=== PATIENT | female | born 1965 | race American Indian/Alaskan Native ===

== ENCOUNTER 2018-01-08 18:09 | Emergency (ER) | payer OTHER ==
[2018-01-08 18:21] VITALS: BP 146/89; PULSE 63; RESP 18; TEMP 98.6; O2SAT 100
--- NOTE | 2018-01-08 19:32 | ED PDOC ---
HPI: General Adult Time Seen by Provider: 01/08/18 18:22 Chief Complaint (Nursing): Upper Extremity Problem/Injury Chief Complaint (Provider): Upper Neck Pain History Per: Patient History/Exam Limitations: no limitations Onset/Duration Of Symptoms: Days (x7) Have you had recent travel within the past 21 days to any of the following countries: [place], [place], [place] or [place]?: No Current Symptoms Are (Timing): Still Present Additional Complaint(s): 52 y/o black female with a history of diabetes, high blood pressure, and high cholesterol presents to the ED with right sided neck pain. Patient states pain has been present for one week and has not had this symptom in the past. She was taking Motrin for the pain which gave some relief until it wore off. Patient denies any trauma or injury. PMD: Dr. Jad Ruiz Past Medical History Reviewed: Historical Data, Nursing Documentation, Vital Signs Vital Signs: Last Vital Signs Temp 98.6 F 01/08/18 18:19 Pulse 63 01/08/18 18:19 Resp 18 01/08/18 18:19 BP 146/89 01/08/18 18:19 Pulse Ox 100 01/08/18 19:35 - Medical History PMH: Diabetes, HTN, Hypercholesterolemia, Hyperlipidemia - Surgical History Surgical History: No Surg Hx - Family History Family History: States: No Known Family Hx - Social History Current smoker - smoking cessation education provided: No Ex-Smoker (has not smoked in the last 12 months): No Alcohol: None Drugs: Denies - Home Medications Home Medications: Ambulatory Orders Medication Instructions Recorded Cyclobenzaprine [Cyclobenzaprine 10 mg PO Q8H PRN #12 tab 01/08/18 HCl] Naproxen [Naprosyn] 500 mg PO BID PRN #20 tablet 01/08/18 - Allergies Allergies/Adverse Reactions: Allergies Allergy/AdvReac Type Severity Reaction Status Date / Time No Known Allergies Allergy Verified 01/08/18 18:22 Review of Systems ROS Statement: Except As Marked, All Systems Reviewed And Found Negative Musculoskeletal: Positive for: Neck Pain (right side) Physical Exam - Reviewed Nursing Documentation Reviewed: Yes Vital Signs Reviewed: Yes - Physical Exam Appears: Positive for: Well, Non-toxic, No Acute Distress Head Exam: Positive for: ATRAUMATIC, NORMAL INSPECTION, NORMOCEPHALIC Skin: Positive for: Normal Color, Warm, Dry Eye Exam: Positive for: EOMI, Normal appearance, PERRL ENT: Positive for: Normal ENT Inspection Neck: Positive for: Pain On Movement Of Neck (tender right trapezius with muscle spasm with movement to the right) Cardiovascular/Chest: Positive for: Regular Rate, Rhythm. Negative for: Murmur Respiratory: Positive for: Normal Breath Sounds. Negative for: Respiratory Distress Gastrointestinal/Abdominal: Positive for: Normal Exam, Soft Back: Positive for: Normal Inspection, Vertebral Tenderness. Negative for: L CVA Tenderness, R CVA Tenderness Extremity: Positive for: Normal ROM. Negative for: Pedal Edema, Deformity Neurologic/Psych: Positive for: Alert, Oriented (x3). Negative for: Motor/ Sensory Deficits - ECG O2 Sat by Pulse Oximetry: 100 (RA) Pulse Ox Interpretation: Normal Medical Decision Making Medical Decision Making: Time: 18:19 Impression: Muscular skeletal pain, rule out cervical spine abnormalities. Plan: * Flexeril 10 mg PO * Spinal X-Ray Scribe Attestation: Documented by Annette Britt acting as a scribe Maria C Jon PA-C. MD Scribe Attestation: All medical record entries made by the Scribe were at my direction and personally dictated by me. I have reviewed the chart and agree that the record accurately reflects my personal performance of the history, physical exam, medical decision making, and the department course for this patient. I have also personally directed, reviewed, and agree with the discharge instructions and disposition. Disposition - Clinical Impression Clinical Impression: Neck pain on right side - Patient ED Disposition Is Patient to be Admitted: No Counseled Patient/Family Regarding: Diagnosis, Need For Followup, Rx Given - Disposition Disposition: Routine/Home Disposition Time: 19:26 Condition: GOOD Prescriptions: Cyclobenzaprine [Cyclobenzaprine HCl] 10 mg PO Q8H PRN #12 tab PRN Reason: Muscle Spasm Naproxen [Naprosyn] 500 mg PO BID PRN #20 tablet PRN Reason: Pain Instructions: Neck Pain Forms: [facility] (Tristanian)
--- NOTE | 2018-01-09 09:08 | RAD ---
PROCEDURE: Cervical Spine Radiographs. HISTORY: Pain. COMPARISON: None. FINDINGS: BONES: Alignment maintained. No fracture. Dens Intact. DISC SPACES: Normal. SOFT TISSUES: Normal. No prevertebral soft tissue swelling. OTHER FINDINGS: None. IMPRESSION: Normal cervical spine radiographs
== END 2018-01-08 19:39 | disposition home or self-care (01) ==
LOC: H.ER 18:09
DX: M54.2 Cervicalgia (principal); E11.9 Type 2 diabetes mellitus without complications; I10 Essential (primary) hypertension; Z87.891 Personal history of nicotine dependence; E78.00 Pure hypercholesterolemia, unspecified

== ENCOUNTER 2018-06-19 13:33 | Emergency (ER) | payer OTHER ==
[2018-06-19 13:55] VITALS: BP 129/69; PULSE 71; RESP 20; TEMP 97; O2SAT 98
[2018-06-19] MEDS ORDERED: Lidocaine 1% (10 ml) Inj INFIL STA (14:26)
[2018-06-19] MEDS ORDERED: Tdap Vaccine 0.5 ml Vial (10-64 yrs) IM ONE ×2 (14:26→14:31)
[2018-06-19] MEDS ORDERED: Lidocaine PF 2% (5 ml) Inj (For Cardiac Arrhy) ONE (14:31)
--- NOTE | 2018-06-19 14:39 | ED PDOC ---
Upper Extremity Pain/Injury Time Seen by Provider: 06/19/18 13:46 Chief Complaint (Nursing): Finger,Hand,&Wrist Chief Complaint (Provider): Right 4th digit laceration History Per: Patient History/Exam Limitations: no limitations Onset/Duration Of Symptoms: Mins Current Symptoms Are (Timing): Still Present Additional Complaint(s): 52yo female, comes to ER for evaluation of a laceration to her right 4th digit. Patient states she was opening a can when her finger got caught on the edge of the can. Otherwise, she denies any numbness or tingling to the finger. Patient states her tetanus vaccine is not up to date. Past Medical History Reviewed: Historical Data, Nursing Documentation, Vital Signs Vital Signs: Last Vital Signs Temp 97 F L 06/19/18 13:54 Pulse 71 06/19/18 13:54 Resp 20 06/19/18 13:54 BP 129/69 06/19/18 13:54 Pulse Ox 98 06/19/18 13:54 - Medical History PMH: Diabetes, HTN, Hypercholesterolemia, Hyperlipidemia - Surgical History Surgical History: No Surg Hx - Family History Family History: States: No Known Family Hx - Home Medications Home Medications: Ambulatory Orders Medication Instructions Recorded Cyclobenzaprine [Cyclobenzaprine 10 mg PO Q8H PRN #12 tab 01/08/18 HCl] Naproxen [Naprosyn] 500 mg PO BID PRN #20 tablet 01/08/18 - Allergies Allergies/Adverse Reactions: Allergies Allergy/AdvReac Type Severity Reaction Status Date / Time No Known Allergies Allergy Verified 01/08/18 18:22 Review of Systems Musculoskeletal: Positive for: Hand Pain (laceration to right 4th digit) Neurological: Negative for: Weakness, Numbness Physical Exam - Reviewed Nursing Documentation Reviewed: Yes Vital Signs Reviewed: Yes - Physical Exam Appears: Positive for: Non-toxic Head Exam: Positive for: ATRAUMATIC, NORMAL INSPECTION, NORMOCEPHALIC Skin: Positive for: Normal Color Neck: Positive for: Supple Respiratory: Negative for: Respiratory Distress Extremity: Positive for: Normal ROM (FROM of all digits on right hand), Capillary Refill (2 seconds), Other (2cm linear laceration noted to dorsum of right 4th digit.). Negative for: Tenderness, Deformity, Swelling Neurologic/Psych: Positive for: Alert, Oriented. Negative for: Motor/Sensory Deficits - ECG O2 Sat by Pulse Oximetry: 98 (RA) Pulse Ox Interpretation: Normal Medical Decision Making Medical Decision Making: Impression: Laceration Plan: * Laceration repaired using sutures; see procedure note * TDAP Booster 0.5ml IM 1450 Patient instructed on wound care, and informed to follow up in 8-10 days for suture removal. Stable for discharge home. Scribe Attestation: Documented by Laura Sandoval acting as a scribe for CAITY Mujica. Provider Attestation: All medical record entries made by the Scribe were at my direction and personally dictated by me. I have reviewed the chart and agree that the record accurately reflects my personal performance of the history, physical exam, medical decision making, and the department course for this patient. I have also personally directed, reviewed, and agree with the discharge instructions and disposition. Procedures - Time-Out Type of Procedure: Laceration repair Site of Procedure: Right 4th digit Correct Procedure: Yes Correct Site Marked: Yes - Laceration/Wound Repair Right 4th digit Wound Length (cm): 2 Wound's Depth, Shape: linear Wound Explored: clean Anesthesia: 1% Lidocaine Wound Repaired With: Sutures Suture Size/Type: 4:0, proline Number of Sutures: 3 Wound Complexity: Simple Sterile Dressing Applied?: Yes Progress: Patient tolerated procedure well. Disposition - Clinical Impression Clinical Impression: Tetanus toxoid vaccination administered at current visit, Finger laceration - Disposition Disposition: Routine/Home Disposition Time: 14:50 Condition: STABLE Additional Instructions: DO not get wet for 24 hours. Antibiotic ointment twice a day. Suture removal in 8-10 days. Instructions: Laceration Repair With Stitches (DC) Forms: [employer] (Greenlandic)
[2018-06-19] MEDS ORDERED: Lidocaine PF 2% (5 ml) Inj (For Cardiac Arrhy) IJ STA (14:50)
== END 2018-06-19 15:13 | disposition home or self-care (01) ==
LOC: H.ER 13:33
DX: S61.214A Laceration without foreign body of right ring finger without damage to nail, initial encounter (principal); W26.8XXA Contact with other sharp object(s), not elsewhere classified, initial encounter; Z23 Encounter for immunization; E11.9 Type 2 diabetes mellitus without complications; I10 Essential (primary) hypertension; E78.00 Pure hypercholesterolemia, unspecified

== ENCOUNTER 2018-06-27 16:59 | Emergency (ER) | payer OTHER ==
[2018-06-27 17:07] VITALS: BP 135/74; PULSE 60; RESP 16; TEMP 97.7; O2SAT 100
--- NOTE | 2018-06-27 17:19 | ED PDOC ---
HPI: Wound Care - HPI Time Seen by Provider: 06/27/18 17:13 Chief Complaint (Nursing): Suture/Staple Removal Chief Complaint (Provider): Suture removal History Per: Patient History Of Present Illness: Ozzy Brizuela is a 52 year old female, with a past medical history of hypercholesterolemia, HTN and diabetes, who presents to the emergency department for suture removal of laceration to right hand repaired 9 days ago. Patient denies any pain, bleeding or discharge from wound. Tetanus is up to date. PMD: [facility] Exam Limitations: no limitations Onset/Duration Of Symptoms: Days (x9) Past Medical History Reviewed: Historical Data, Nursing Documentation, Vital Signs Vital Signs: Last Vital Signs Temp 97.7 F 06/27/18 17:05 Pulse 60 06/27/18 17:05 Resp 16 06/27/18 17:05 BP 135/74 06/27/18 17:05 Pulse Ox 100 06/27/18 17:05 - Medical History PMH: Diabetes, HTN, Hypercholesterolemia, Hyperlipidemia - Family History Family History: States: No Known Family Hx - Living Arrangements Living Arrangements: With Family - Social History Current smoker - smoking cessation education provided: No Alcohol: None Drugs: Denies - Immunization History Hx Tetanus Toxoid Vaccination: Yes - Home Medications Home Medications: Ambulatory Orders Medication Instructions Recorded Cyclobenzaprine [Cyclobenzaprine 10 mg PO Q8H PRN #12 tab 01/08/18 HCl] Naproxen [Naprosyn] 500 mg PO BID PRN #20 tablet 01/08/18 - Allergies Allergies/Adverse Reactions: Allergies Allergy/AdvReac Type Severity Reaction Status Date / Time No Known Allergies Allergy Verified 06/27/18 17:04 Review of Systems ROS Statement: Except As Marked, All Systems Reviewed And Found Negative Constitutional: Negative for: Fever Skin: Positive for: Other (sutures in place to right 4th digit) Physical Exam - Reviewed Nursing Documentation Reviewed: Yes Vital Signs Reviewed: Yes - Physical Exam Appears: Positive for: Well, Non-toxic, No Acute Distress Skin: Positive for: Normal Color. Negative for: Rash Extremity: Positive for: Normal ROM (upper and lower extremities), Other (Well healed laceration noted to dorsal aspect of right 4th digit proximally with no infection noted.). Negative for: Deformity Neurologic/Psych: Positive for: Alert, Oriented - ECG O2 Sat by Pulse Oximetry: 100 (RA) Pulse Ox Interpretation: Normal Medical Decision Making Medical Decision Making: Time: 17:13 Initial Impression: Suture removal Initial Plan: --3 sutures were removed without difficulty. The patient tolerated the procedure well and there were no complications. Patient advised to keep wound clean and dry and follow up as needed with PMD. Scribe Attestation: Documented by Steven Barnes, acting as a scribe for Wendi Morris PA-C Provider Scribe Attestation: All medical record entries made by the Scribe were at my direction and personally dictated by me. I have reviewed the chart and agree that the record accurately reflects my personal performance of the history, physical exam, medical decision making, and the department course for this patient. I have also personally directed, reviewed, and agree with the discharge instructions and disposition. Disposition - Clinical Impression Clinical Impression: Removal of suture - Patient ED Disposition Is Patient to be Admitted: No Counseled Patient/Family Regarding: Diagnosis, Need For Followup - Disposition Referrals: [facility] [Outside] Disposition: Routine/Home Disposition Time: 17:26 Condition: STABLE Additional Instructions: Wash wound daily with soap and water. Tylenol for pain as needed. Follow-up as needed with primary doctor. Instructions: Stitches Removal Forms: [employer] (Georgian)
== END 2018-06-27 18:29 | disposition home or self-care (01) ==
LOC: H.ER 16:59
DX: Z48.02 Encounter for removal of sutures (principal)